=== PATIENT | male | born 1990 | race Caucasian/White ===

== ENCOUNTER 2020-04-24 03:02 | Emergency (ER) | payer OTHER ==
[~2020-04-24] VITALS: Ht 182.9 cm; Wt 81.8 kg
[2020-04-24 03:04] VITALS: BP 120/79
[2020-04-24] MEDS ORDERED: LEVO25TA4 PO (03:11)
== END 2020-04-24 04:05 | disposition home or self-care (01) ==
LOC: EDBD 03:02 → ED 03:29
DX: Z77.21 Contact with and (suspected) exposure to potentially hazardous body fluids (principal)
CPT/HCPCS: 36415; 86705; 86706; 86803; 87340; 87806; 99283; G0475

== ENCOUNTER 2020-05-14 05:18 | Emergency (ER) | payer OTHER ==
[~2020-05-14] VITALS: Ht 182.9 cm; Wt 84.0 kg
[~2020-05-14 05:18] MED LIST: LEVO25TA4 PO
[2020-05-14 05:19] VITALS: BP 130/77
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
--- NOTE | 2020-05-14 05:53 | NUR ---
Patient given discharge instructions and they have confirmed that they understand the instructions. Patient ambulatory with steady gait. PT DENIES ADDITIONAL QUESTIONS AT THIS TIME.
== END 2020-05-14 05:56 | disposition home or self-care (01) ==
LOC: ED 05:54
DX: Z57.8 Occupational exposure to other risk factors (principal)
CPT/HCPCS: 36415; 86705; 86706; 86803; 87340; 87806; 99283; G0475